=== PATIENT | male | born 1960 | race Caucasian/White ===

== ENCOUNTER 2018-04-08 06:00 | Inpatient (IN) | payer MEDICARE, BC, OTHER ==
[~2018-04-08] VITALS: Ht 172.7 cm; Wt 128.2 kg
[~2018-04-08 06:00] MED LIST: AMIT50TA3 PO; ARIP5TAB8 PO; ATEN25TA PO; CELE200 PO; COLE625 PO; CYAN50008 IM; CeFAZolin 2 GM/DEXTROSE 0 ML IV ONE; DESV50TA PO; DUTA1CPM PO; EZET1TAB17 PO; LAMO100 PO; LEVO137T24 PO; MEMA1CAP2 PO; MET750 PO; OXYC10 PO; PREG50 PO; PROPOFOL 1000 MG/ISO-OSM 0 ML IV ONE; RINGERS SOLUTION,LACTATED 1,000 ML IV ONE; RIT5 PO; TEST1PAT3 TD; TOPI100T37 PO; TOPI25 PO
[2018-04-08] MEDS ORDERED: CeFAZolin 2 GM/DEXTROSE 50 ML IV ONE (06:30)
[2018-04-08] MEDS ORDERED: RINGERS SOLUTION,LACTATED 1,000 ML IV ONE (06:30)
[2018-04-08 06:59] LABS: BASOPHILS % (AUTO) 1.4 % (0.0-2.0); EOSINOPHILS % (AUTO) 3.6 % (1.0-6.0); HEMATOCRIT 38.1 % (41-53); HEMOGLOBIN 12.8 g/dL (13.5-17.5); LYMPHOCYTES # (AUTO) 1.2 K/uL (1.0-4.8); LYMPHOCYTES % (AUTO) 28.7 % (22.0-44.0); MEAN CORPUSCULAR HEMOGLOBIN 28.5 pg (26.0-34.0); MEAN CORPUSCULAR HGB CONC 33.7 G/dL (31.0-37.0); MEAN CORPUSCULAR VOLUME 85 fL (80-100); MONOCYTES # (AUTO) 0.4 K/uL (0.1-1.0); MONOCYTES % (AUTO) 10.1 % (2.0-9.0); NEUTROPHILS # (AUTO) 2.4 K/uL (1.8-7.7); NEUTROPHILS % (AUTO) 56.2 % (40.0-70.0); PLATELET COUNT (AUTO) 141 K/uL (150-450); RED BLOOD CELL COUNT(AUTO) 4.51 MIL/uL (4.50-5.90); RED CELL DISTRIBUTION WIDTH 15.4 % (11.5-14.5)
[2018-04-08] MEDS ORDERED: BUPIVACAINE LIPOSOME/PF 1.3%-13.3MG/ML SUSPENSION 20 ML VIAL INJ ONE (07:00)
[2018-04-08] MEDS ORDERED: HYDROmorphone 2 MG/ML SYRINGE IVP PRN (07:00)
[2018-04-08] MEDS ORDERED: MEPERIDINE HCL/PF 25 MG/0.5 ML AMP IVP PRN (07:00)
[2018-04-08] MEDS ORDERED: FentaNYL CITRATE-PF 100 MCG/2 ML VIAL IVP PRN (07:00)
[2018-04-08 07:04] LABS: ANION GAP 5 mmol/L (8-16); CALCIUM, TOTAL 7.9 mg/dL (8.8-10.5); CARBON DIOXIDE 29 mmol/L (22-29); CHLORIDE 104 mmol/L (98-107); CREATININE 1.18 mg/dL (0.60-1.30); GLOMERULAR FILTR. RATE CALC > 60 mL/min (>60); GLUCOSE,RANDOM 101 mg/dL (70-110); POTASSIUM 3.6 mmol/L (3.5-5.1); SODIUM SERUM 138 mmol/L (136-145); UREA NITROGEN, BLOOD 11 mg/dL (7-18)
[2018-04-08 07:11] LABS: PROTHROMBIN TIME 10.1 SEC (9.4-11.6)
[2018-04-08 07:44] LABS: GLUCOMETER DEV NAME(LOC) SDS 5; GLUCOSE,POINT OF CARE 92 MG/DL (70-110)
[2018-04-08] MEDS ORDERED: OXYGEN THERAPY IH SCH (08:00)
[2018-04-08] MEDS ORDERED: BENZOCAINE/MENTHOL LOZENGE PO PRN (08:15)
[2018-04-08] MEDS ORDERED: DiphenhydrAMINE HCL 50 MG/ML VIAL IVP PRN (08:15)
[2018-04-08] MEDS ORDERED: ZOLPIDEM TARTRATE 10 MG TABLET PO PRN (08:15)
[2018-04-08] MEDS ORDERED: ALBUMIN HUMAN 25%-12.5GM/50ML 50 ML ONE (08:26)
[2018-04-08] MEDS ORDERED: VASOPRESSIN 20 UNITS/ML VIAL ONE (08:37)
[2018-04-08] MEDS ORDERED: RINGERS SOLUTION,LACTATED 2,000 ML IV ONE (08:46)
[2018-04-08] MEDS: TOPIRAMATE 100 MG TABLET PO SCH ×2 (09:15→16:53)
[2018-04-08] MEDS: CYCLOBENZAPRINE HCL 10 MG TABLET PO SCH ×2 (09:15→20:25)
[2018-04-08] MEDS ORDERED: METHOCARBAMOL 750 MG TABLET PO ONE (09:15)
[2018-04-08] MEDS: ACETAMINOPHEN 1000 MG/ISO-OSM 100 ML IV SCH ×2 (09:15→16:53)
[2018-04-08] MEDS ORDERED: CELECOXIB 200 MG CAPSULE PO ONE (09:15)
[2018-04-08] MEDS ORDERED: GUM MASTIC/STORAX/MSAL/ALCOHOL LIQUID 0.67 ML VIAL TP ONE (09:57)
[2018-04-08] MEDS ORDERED: FentaNYL CITRATE-PF 100 MCG/2 ML VIAL ONE (10:55)
[2018-04-08] MEDS ORDERED: CYAN1000I IM (11:01)
[2018-04-08] MEDS ORDERED: SUCCINYLCHOLINE CHLORIDE 20 MG/ML 10 ML VIAL IVP ONE (12:00)
[2018-04-08] MEDS ORDERED: ROCURONIUM BROMIDE 10 MG/ML 5 ML VIAL IVP ONE (12:00)
[2018-04-08] MEDS ORDERED: DEXAMETHASONE SOD PHOS 4 MG/ML VIAL IVP ONE (12:00)
[2018-04-08] MEDS ORDERED: MIDAZOLAM HCL 2 MG/2 ML VIAL IVP ONE (12:00)
[2018-04-08] MEDS ORDERED: KETAMINE HCL 50 MG/ML 10 ML VIAL IVP ONE (12:00)
[2018-04-08] MEDS ORDERED: NEOSTIGMINE METHYLSULFATE 1 MG/ML 10 ML VIAL IVP ONE (12:00)
[2018-04-08] MEDS ORDERED: GLYCOPYRROLATE 0.2 MG/ML VIAL IM ONE (12:00)
[2018-04-08] MEDS ORDERED: FentaNYL CITRATE-PF 250 MCG/5 ML VIAL IVP ONE (12:00)
[2018-04-08] MEDS ORDERED: EPHEDrine SULFATE 50 MG/ML VIAL IM ONE (12:00)
[2018-04-08] MEDS ORDERED: PHENYLEPHRINE HCL 10 MG/ML VIAL IVP ONE (12:00)
[2018-04-08] MEDS ORDERED: PROPOFOL 1% 20 ML VIAL IVP ONE (12:00)
[2018-04-08] MEDS ORDERED: 0.9% SODIUM CHLORIDE 10 ML VIAL IVP ONE (12:00)
[2018-04-08] MEDS: HYDROmorphone 2 MG/ML SYRINGE IVP PRN ×6 (12:04→23:39)
[2018-04-08 12:24] VITALS: BP 127/70
[2018-04-08] MEDS ORDERED: INSULIN LISPRO 100 UNITS/ML SQ PRN (14:45)
[2018-04-08] MEDS ORDERED: DEXTROSE 50%-WATER 25 GM/50 ML SYRINGE IVP PRN (14:45)
[2018-04-08 15:18] LABS: THYROID STIMULATING HORMONE 3.09 uIU/mL (0.36-3.74)
[2018-04-08 16:07] VITALS: BP 105/65
[2018-04-08 19:48] VITALS: BP 116/56
[2018-04-08] MEDS: TOPIRAMATE 25 MG TABLET PO SCH (20:22)
[2018-04-08] MEDS: AMITRIPTYLINE HCL 50 MG TABLET PO SCH (20:22)
[2018-04-08] MEDS: ARIPiprazole 5 MG TABLET PO SCH (20:22)
[2018-04-08] MEDS: DIAZEPAM 5 MG TABLET PO PRN (23:42)
[2018-04-08 23:45] VITALS: BP 122/58
[2018-04-09] MEDS: ACETAMINOPHEN 1000 MG/ISO-OSM 100 ML IV SCH (01:15)
[2018-04-09] MEDS: HYDROmorphone 2 MG/ML SYRINGE IVP PRN ×9 (03:48→23:43)
[2018-04-09 04:41] VITALS: BP 109/61
[2018-04-09 05:55] LABS: BASOPHILS % (AUTO) 0.5 % (0.0-2.0); EOSINOPHILS % (AUTO) 1.1 % (1.0-6.0); HEMATOCRIT 38.4 % (41-53); HEMOGLOBIN 12.7 g/dL (13.5-17.5); LYMPHOCYTES # (AUTO) 1.5 K/uL (1.0-4.8); LYMPHOCYTES % (AUTO) 21.2 % (22.0-44.0); MEAN CORPUSCULAR HEMOGLOBIN 28.3 pg (26.0-34.0); MEAN CORPUSCULAR VOLUME 86 fL (80-100); MONOCYTES # (AUTO) 0.7 K/uL (0.1-1.0); MONOCYTES % (AUTO) 9.7 % (2.0-9.0); NEUTROPHILS # (AUTO) 4.7 K/uL (1.8-7.7); NEUTROPHILS % (AUTO) 67.5 % (40.0-70.0); PLATELET COUNT (AUTO) 147 K/uL (150-450); RED BLOOD CELL COUNT(AUTO) 4.49 MIL/uL (4.50-5.90); RED CELL DISTRIBUTION WIDTH 16.2 % (11.5-14.5)
[2018-04-09 06:12] LABS: ANION GAP 10 mmol/L (8-16); CALCIUM, TOTAL 8.5 mg/dL (8.8-10.5); CARBON DIOXIDE 29 mmol/L (22-29); CHLORIDE 103 mmol/L (98-107); CREATININE 1.14 mg/dL (0.60-1.30); GLOMERULAR FILTR. RATE CALC > 60 mL/min (>60); GLUCOSE,RANDOM 82 mg/dL (70-110); POTASSIUM 3.9 mmol/L (3.5-5.1); SODIUM SERUM 142 mmol/L (136-145); UREA NITROGEN, BLOOD 10 mg/dL (7-18)
[2018-04-09] MEDS: PREGABALIN 50 MG CAPSULE PO SCH (07:00)
[2018-04-09 07:41] VITALS: BP 118/58
[2018-04-09] MEDS: TOPIRAMATE 100 MG TABLET PO SCH ×2 (07:57→16:31)
[2018-04-09] MEDS: CYCLOBENZAPRINE HCL 10 MG TABLET PO SCH ×3 (09:00→21:00)
[2018-04-09] MEDS ORDERED: OxyCODONE HCL/ACETAMINOPHEN 5-325 MG TABLET PO PRN (09:15)
[2018-04-09 10:14] VITALS: BP 135/67
[2018-04-09 11:36] VITALS: BP 118/94
[2018-04-09] MEDS: DIAZEPAM 5 MG TABLET PO PRN (13:14)
[2018-04-09 16:32] VITALS: BP 119/64
[2018-04-09 19:23] VITALS: BP 125/69
[2018-04-09] MEDS: AMITRIPTYLINE HCL 50 MG TABLET PO SCH (19:39)
[2018-04-09] MEDS: ARIPiprazole 5 MG TABLET PO SCH (19:39)
[2018-04-09] MEDS: TOPIRAMATE 25 MG TABLET PO SCH (22:02)
[2018-04-10 02:30] VITALS: BP 106/66
[2018-04-10] MEDS: HYDROmorphone 2 MG/ML SYRINGE IVP PRN ×4 (02:30→08:27)
[2018-04-10 04:15] VITALS: BP 114/67
[2018-04-10] MEDS: PREGABALIN 50 MG CAPSULE PO SCH (06:49)
[2018-04-10 07:38] VITALS: BP 106/68
[2018-04-10] MEDS: TOPIRAMATE 100 MG TABLET PO SCH (08:27)
== END 2018-04-10 09:48 | disposition home or self-care (01) | DRG 472 ==
LOC: 4E 06:00
PROVIDERS: ADMIT Orthopaedic Surgery Orthopaedic Surgery of the Spine; ATTEND Orthopaedic Surgery Orthopaedic Surgery of the Spine
PROC: 0RP10AZ Removal of Interbody Fusion Device from Cervical Vertebral Joint, Open Approach (ICD-10-PCS; 2018-04-08)
PROC: 0RG10A0 Fusion of Cervical Vertebral Joint with Interbody Fusion Device, Anterior Approach, Anterior Column, Open Approach (ICD-10-PCS; principal; 2018-04-08 08:30)
DX: M96.0 Pseudarthrosis after fusion or arthrodesis (principal); Z68.41 Body mass index [BMI] 40.0-44.9, adult; E03.9 Hypothyroidism, unspecified; E11.9 Type 2 diabetes mellitus without complications; E66.01 Morbid (severe) obesity due to excess calories; G89.29 Other chronic pain; Z79.4 Long term (current) use of insulin; Y83.9 Surgical procedure, unspecified as the cause of abnormal reaction of the patient, or of later complication, without mention of misadventure at the time of the procedure; Y92.89 Other specified places as the place of occurrence of the external cause
CPT/HCPCS: 84443; 86850; 86900; 86901; 87081; 88300; 93005; 97116; 97163; 97167; 97530; 97535; C1713; C9290; J0131; J0330; J0690; J1100; J1170; J2250; J2370; J2704; J3010; J3490; J7120; P9047